=== PATIENT | female | born 1990 | race Native Hawaiian/Other Pacific Islander ===

== ENCOUNTER 2020-03-03 14:14 | Emergency (ER) | payer OTHER ==
[~2020-03-03] VITALS: Ht 167.6 cm; Wt 81.6 kg
[2020-03-03 14:14] VITALS: BP 107/63; TEMP 97.7
[2020-03-03 15:07] LABS: PLATELET COUNT 147 K/uL (152-353)
[2020-03-03 15:12] LABS: POTASSIUM 3.9 mmol/L (3.6-5.2)
[2020-03-03 15:24] LABS: PARTIAL THROMBOPLASTIN TIME 27.5 SECONDS (24.5-33.6)
== END 2020-03-03 22:57 | disposition home or self-care (01) ==
LOC: ED 14:40
PROVIDERS: Hospitalist
DX: O23.33 Infections of other parts of urinary tract in pregnancy, third trimester (principal); Z3A.30 30 weeks gestation of pregnancy; Y09 Assault by unspecified means; Y92.810 Car as the place of occurrence of the external cause
CPT/HCPCS: 80053; 80307; 80320; 81000; 84702; 85027; 85610; 85730; 96365; 99284; J0696